=== PATIENT | female | born 1950 | race Caucasian/White ===

== ENCOUNTER 2020-08-22 06:43 | Emergency (ER) | payer OTHER ==
[~2020-08-22] VITALS: Ht 157.5 cm; Wt 51.5 kg
[2020-08-22 06:45] VITALS: BP 149/85
[2020-08-22] MEDS ORDERED: ketorolac tromethamine 15mg/ml inj. IM ONE (07:10)
[2020-08-22] MEDS ORDERED: ACET-3067 PO (07:57)
== END 2020-08-22 08:17 | disposition home or self-care (01) ==
LOC: ER 06:44
DX: M25.511 Pain in right shoulder (principal); G43.909 Migraine, unspecified, not intractable, without status migrainosus; Z79.899 Other long term (current) drug therapy
CPT/HCPCS: 73090; 99283; J1885; 96372